=== PATIENT | female | born 1975 | race Caucasian/White ===

== ENCOUNTER 2016-12-23 07:15 | Emergency (ER) | payer MEDICAID ==
[~2016-12-23] VITALS: Ht 157.5 cm; Wt 64.5 kg
[~2016-12-23 07:15] MED LIST: CIPRO 500MG TA500 MG PO; MULTI VITAMINS1 TAB PO; OMNICEF 300MG300 MG PO
[2016-12-23] MEDS ORDERED: MULTI VITAMINS1 TAB PO (07:22)
[2016-12-23 07:56] LABS: BASO # 0.1 (0.0-0.2); BASO % 1.5 % (0.0-2.0); EOS # 0.1 (0.0-0.7); EOS % 1.1 % (0-4.0); GRAN # 3.4 (1.4-6.5); GRAN % 63.6 % (42.2-75.2); LYMPH # 1.4 (1.2-3.4); LYMPH % 26.5 % (20.0-51.0); MEAN CELL VOLUME 83 fl (80.0-100.0); MEAN CORPUSCULAR HGB CONC 31 g/dl (33.0-37.0); MEAN PLATELET VOLUME 9.4 fl (7.4-10.4); MONO # 0.4 (0.1-0.6); MONO % 6.9 % (1.7-9.3); PLATELET COUNT 284 K/mm3 (130-400); RED BLOOD COUNT 3.91 M/mm3 (4.10-5.30); REDCELL DISTRIBUTION WIDTH-CV 13.2 % (11.5-14.5); WHITE BLOOD COUNT 5.3 K/mm3 (4.8-10.8)
[2016-12-23 08:22] LABS: HEMATOCRIT 32.4 % (37.0-47.0); MEAN CORPUSCULAR HEMOGLOBIN 26 pg (27.0-31.0)
[2016-12-23 08:25] LABS: AMPHETAMINE URINE NEGATIVE; BARBITURATES URINE NEGATIVE; BENZODIAZEPINES URINE NEGATIVE; BUPRENORPHINE URINE NEGATIVE; METHADONE URINE NEGATIVE; OPIATES URINE NEGATIVE; OXYCODONE URINE NEGATIVE; PHENCYCLIDINE URINE NEGATIVE; PROPOXYPHENE URINE NEGATIVE; THC CANNABINOIDS URINE NEGATIVE
[2016-12-23 08:34] LABS: ADJUSTED CALCIUM 8.6 mg/dL (8.4-10.2); ALANINE AMINOTRANSFERASE 22 U/L (9-52); ALBUMIN 4.4 gm/dL (3.5-5.0); ALKALINE PHOSPHATASE 62 U/L (50-136); ANION GAP 8 mmol/L (7-16); BILIRUBIN,TOTAL 0.7 mg/dL (0.0-1.0); BLOOD UREA NITROGEN 13 mg/dL (7-17); CALCIUM 8.9 mg/dL (8.4-10.2); CARBON DIOXIDE 27 mmol/L (22-30); CHLORIDE 103 mmol/L (98-107); GLUCOSE 100 mg/dL (74-106); POTASSIUM 3.8 mmol/L (3.4-5.0); SODIUM 138 mmol/L (137-145); TOTAL PROTEIN 7.7 gm/dL (6.4-8.2)
[2016-12-23 08:35] LABS: ACETAMINOPHEN < 10 ug/mL (10-30); SALICYLATE < 1.0 mg/dL
[2016-12-23 11:12] VITALS: BP 132/67; TEMP 98.4
[2016-12-23 11:44] VITALS: PULSE 92
== END 2016-12-23 11:50 ==
LOC: COL.ER 07:15
PROVIDERS: Emergency Medicine
DX: F32.9 Major depressive disorder, single episode, unspecified (principal); R45.851 Suicidal ideations; R44.0 Auditory hallucinations

== ENCOUNTER 2017-01-17 11:02 | Emergency (ER) | payer MEDICAID ==
[~2017-01-17] VITALS: Ht 157.5 cm; Wt 72.3 kg
[2017-01-17 11:19] VITALS: TEMP 97.9
[2017-01-17 12:02] LABS: BASO # 0.1 (0.0-0.2); BASO % 1.1 % (0.0-2.0); EOS % 0.9 % (0-4.0); GRAN # 2.6 (1.4-6.5); GRAN % 57.1 % (42.2-75.2); LYMPH # 1.5 (1.2-3.4); LYMPH % 33.8 % (20.0-51.0); MEAN CELL VOLUME 79 fl (80.0-100.0); MEAN CORPUSCULAR HGB CONC 30 g/dl (33.0-37.0); MEAN PLATELET VOLUME 9.8 fl (7.4-10.4); MONO # 0.3 (0.1-0.6); MONO % 6.9 % (1.7-9.3); PLATELET COUNT 235 K/mm3 (130-400); RED BLOOD COUNT 4.32 M/mm3 (4.10-5.30); REDCELL DISTRIBUTION WIDTH-CV 13.5 % (11.5-14.5); WHITE BLOOD COUNT 4.5 K/mm3 (4.8-10.8)
[2017-01-17 12:04] LABS: HEMATOCRIT 34.1 % (37.0-47.0); HEMOGLOBIN 10.2 g/dl (12.5-16.0); MEAN CORPUSCULAR HEMOGLOBIN 24 pg (27.0-31.0)
[2017-01-17 12:13] LABS: ADJUSTED CALCIUM 8.5 mg/dL (8.4-10.2); ALANINE AMINOTRANSFERASE 26 U/L (9-52); ALBUMIN 4.7 gm/dL (3.5-5.0); ALKALINE PHOSPHATASE 72 U/L (50-136); ANION GAP 12 mmol/L (7-16); BILIRUBIN,TOTAL 0.6 mg/dL (0.0-1.0); BLOOD UREA NITROGEN 14 mg/dL (7-17); CALCIUM 9.1 mg/dL (8.4-10.2); CARBON DIOXIDE 25 mmol/L (22-30); CHLORIDE 102 mmol/L (98-107); CREATININE, serum 0.68 mg/dL (0.52-1.25); GLUCOSE 95 mg/dL (74-106); SODIUM 138 mmol/L (137-145); TOTAL PROTEIN 8.2 gm/dL (6.4-8.2)
[2017-01-17 12:15] LABS: ACETAMINOPHEN < 10 ug/mL (10-30); SALICYLATE < 1.0 mg/dL
[2017-01-17 12:17] LABS: AMPHETAMINE URINE NEGATIVE; BARBITURATES URINE NEGATIVE; BENZODIAZEPINES URINE NEGATIVE; BUPRENORPHINE URINE NEGATIVE; METHADONE URINE NEGATIVE; OPIATES URINE NEGATIVE; OXYCODONE URINE NEGATIVE; PHENCYCLIDINE URINE NEGATIVE; PROPOXYPHENE URINE NEGATIVE; THC CANNABINOIDS URINE NEGATIVE
[2017-01-17] MEDS ORDERED: ZOLOFT 50MG50 MG PO (16:30)
[2017-01-17] MEDS ORDERED: RISPERDAL 0.5M0.5 MG PO (16:30)
[2017-01-17] MEDS ORDERED: RISPERDAL 1M1 MG/TAB PO (16:30)
[2017-01-17] MEDS ORDERED: DESYREL 50MG50 MG PO (16:30)
[2017-01-17 18:12] VITALS: BP 120/72; PULSE 72
== END 2017-01-17 18:14 ==
LOC: COL.ER 11:02
PROVIDERS: Emergency Medicine
DX: R45.851 Suicidal ideations (principal); F32.9 Major depressive disorder, single episode, unspecified; R44.0 Auditory hallucinations

== ENCOUNTER 2017-04-23 01:47 | Emergency (ER) | payer SELFPAY ==
[~2017-04-23] VITALS: Ht 160 cm; Wt 70.5 kg
[~2017-04-23 01:47] MED LIST changes: +DESYREL 50MG50 MG PO; +RISPERDAL 0.5M0.5 MG PO; +RISPERDAL 1M1 MG/TAB PO; +ZOLOFT 50MG50 MG PO
[2017-04-23 01:49] VITALS: TEMP 96.9
[2017-04-23] MEDS ORDERED: LATUDA80 MG PO (01:52)
[2017-04-23] MEDS ORDERED: DESYREL 100MG100 MG PO (01:53)
[2017-04-23] MEDS ORDERED: CYMBALTA 60MG60 MG PO (01:53)
[2017-04-23 02:34] LABS: BASO # 0.1 (0.0-0.2); BASO % 0.8 % (0.0-2.0); EOS # 0.1 (0.0-0.7); EOS % 0.9 % (0-4.0); GRAN # 6.9 (1.4-6.5); HEMATOCRIT 32.3 % (37.0-47.0); HEMOGLOBIN 9.8 g/dl (12.5-16.0); LYMPH # 2.1 (1.2-3.4); LYMPH % 20.7 % (20.0-51.0); MEAN CELL VOLUME 77 fl (80.0-100.0); MEAN CORPUSCULAR HEMOGLOBIN 23 pg (27.0-31.0); MEAN CORPUSCULAR HGB CONC 30 g/dl (33.0-37.0); MONO # 0.7 (0.1-0.6); MONO % 7.2 % (1.7-9.3); PLATELET COUNT 247 K/mm3 (130-400); RED BLOOD COUNT 4.22 M/mm3 (4.10-5.30); REDCELL DISTRIBUTION WIDTH-CV 16.5 % (11.5-14.5); WHITE BLOOD COUNT 9.9 K/mm3 (4.8-10.8)
[2017-04-23 02:40] LABS: PH 6 (5-8); URINE APPEARANCE Cloudy; URINE BACTERIA Rare /hpf; URINE BILIRUBIN Negative (NEGATIVE); URINE BLOOD 3+ (NEGATIVE); URINE COLOR Yellow; URINE GLUCOSE Negative (NEGATIVE); URINE KETONE Negative (NEGATIVE); URINE RBC >50 /hpf; URINE UROBILINOGEN Negative (NEGATIVE)
[2017-04-23 02:41] LABS: URINE WBC >50 /hpf
[2017-04-23 02:46] LABS: ADJUSTED CALCIUM 8.8 mg/dL (8.4-10.2); ALANINE AMINOTRANSFERASE 21 U/L (9-52); ALBUMIN 4.4 gm/dL (3.5-5.0); ALKALINE PHOSPHATASE 67 U/L (50-136); ANION GAP 11 mmol/L (7-16); BILIRUBIN,TOTAL 0.4 mg/dL (0.0-1.0); BLOOD UREA NITROGEN 17 mg/dL (7-17); C-REACTIVE PROTEIN < 0.5 mg/dL (0.0-0.9); CALCIUM 9.1 mg/dL (8.4-10.2); CARBON DIOXIDE 23 mmol/L (22-30); CHLORIDE 105 mmol/L (98-107); CREATININE, serum 0.78 mg/dL (0.52-1.25); GLUCOSE 98 mg/dL (74-106); LIPASE 342 U/L (23-300); POTASSIUM 3.7 mmol/L (3.4-5.0); SODIUM 139 mmol/L (137-145); TOTAL PROTEIN 7.6 gm/dL (6.4-8.2)
[2017-04-23] MEDS ORDERED: PYRIDIUM200 M1 PO (03:41)
[2017-04-23] MEDS ORDERED: PERCOCET 325 MG1 TA2 PO (03:41)
[2017-04-23] MEDS ORDERED: OMNICEF 300MG300 MG PO (03:41)
[2017-04-23] MEDS ORDERED: ZOFRAN 4MG T4 MG/TAB PO (03:41)
[2017-04-23 04:07] VITALS: BP 119/80; PULSE 73
== END 2017-04-23 04:11 | disposition home or self-care (01) ==
LOC: COL.ER 01:47
PROVIDERS: Emergency Medicine
DX: N39.0 Urinary tract infection, site not specified (principal); N12 Tubulo-interstitial nephritis, not specified as acute or chronic; B96.89 Other specified bacterial agents as the cause of diseases classified elsewhere; F32.9 Major depressive disorder, single episode, unspecified; Z90.49 Acquired absence of other specified parts of digestive tract; Z98.51 Tubal ligation status
CPT/HCPCS: J0696; J1885; J2405; J7030

== ENCOUNTER 2017-12-06 15:30 | Emergency (ER) | payer MEDICAID ==
[~2017-12-06] VITALS: Ht 157.5 cm; Wt 61.4 kg
[~2017-12-06 15:30] MED LIST changes: +CYMBALTA 60MG60 MG PO; +DESYREL 100MG100 MG PO; +LATUDA80 MG PO; +PERCOCET 325 MG1 TA2 PO; +PYRIDIUM200 M1 PO; +ZOFRAN 4MG T4 MG/TAB PO
[2017-12-06 15:35] VITALS: TEMP 98.8
[2017-12-06 16:30] LABS: BASO # 0.1 (0.0-0.2); EOS # 0.1 (0.0-0.7); EOS % 1.2 % (0-4.0); GRAN % 68.5 % (42.2-75.2); HEMATOCRIT 32.9 % (37.0-47.0); LYMPH # 1.5 (1.2-3.4); MEAN CELL VOLUME 77 fl (80.0-100.0); MEAN CORPUSCULAR HEMOGLOBIN 23 pg (27.0-31.0); MEAN CORPUSCULAR HGB CONC 30 g/dl (33.0-37.0); MEAN PLATELET VOLUME 9.5 fl (7.4-10.4); MONO # 0.6 (0.1-0.6); MONO % 8.2 % (1.7-9.3); PLATELET COUNT 272 K/mm3 (130-400); REDCELL DISTRIBUTION WIDTH-CV 15.1 % (11.5-14.5)
[2017-12-06 16:40] LABS: COLLECTION METHOD CLEAN CATCH
[2017-12-06 16:46] LABS: MUCOUS Present /lpf; PH 5 (5-8); URINE APPEARANCE Cloudy; URINE BACTERIA Rare /hpf; URINE BILIRUBIN Negative (NEGATIVE); URINE BLOOD Negative (NEGATIVE); URINE COLOR Amber; URINE GLUCOSE Negative (NEGATIVE); URINE KETONE 1+ (NEGATIVE); URINE LEUKOCYTE ESTERASE 3+ (NEGATIVE); URINE NITRATE Negative (NEGATIVE); URINE PROTEIN(semi-quant) 2+ (NEGATIVE); URINE UROBILINOGEN >=4.0 mg/dL (NEGATIVE)
[2017-12-06 16:47] LABS: ACETAMINOPHEN < 10 ug/mL (10-30); ALANINE AMINOTRANSFERASE 24 U/L (9-52); ALBUMIN 4.5 gm/dL (3.5-5.0); ALCOHOL(ethanol),MEDICAL < 10 mg/dL; ALKALINE PHOSPHATASE 62 U/L (50-136); ANION GAP 13 mmol/L (7-16); AST,SGOT 21 U/L (15-37); BILIRUBIN,TOTAL 0.3 mg/dL (0.0-1.0); BLOOD UREA NITROGEN 22 mg/dL (7-17); CALCIUM 9.7 mg/dL (8.4-10.2); CARBON DIOXIDE 27 mmol/L (22-30); CHLORIDE 101 mmol/L (98-107); GLUCOSE 116 mg/dL (74-106); POTASSIUM 3.5 mmol/L (3.4-5.0); SALICYLATE < 1.0 mg/dL; SODIUM 141 mmol/L (137-145); TOTAL PROTEIN 8.2 gm/dL (6.4-8.2)
[2017-12-06] MEDS ORDERED: WELLBUTRIN 75MG75 MG (16:50)
[2017-12-06] MEDS ORDERED: ELAVIL150 MG PO (16:51)
[2017-12-06] MEDS ORDERED: XANAX 0.5MG0.5 MG (16:51)
[2017-12-06] MEDS ORDERED: MACROBID 1100 MG/CAP PO (17:05)
[2017-12-06 17:22] LABS: TRICYCLIC ANTIDEPRESS URINE NEGATIVE
[2017-12-06] MEDS ORDERED: AMBIEN 10MG10 MG PO (18:23)
[2017-12-06 21:21] VITALS: BP 129/84; PULSE 105
[2017-12-08] MEDS ORDERED: CEFTIN500 MG PO (11:31)
== END 2017-12-06 21:21 ==
LOC: COL.ER 15:30
PROVIDERS: Nurse Practitioner
DX: F32.9 Major depressive disorder, single episode, unspecified (principal); N39.0 Urinary tract infection, site not specified; F43.10 Post-traumatic stress disorder, unspecified; Z98.51 Tubal ligation status; Z90.89 Acquired absence of other organs

== ENCOUNTER 2017-12-26 18:48 | Emergency (ER) | payer MEDICAID ==
[~2017-12-26] VITALS: Ht 165.1 cm; Wt 68.2 kg
[~2017-12-26 18:48] MED LIST changes: +AMBIEN 10MG10 MG PO; +CEFTIN500 MG PO; +ELAVIL150 MG PO; +MACROBID 1100 MG/CAP PO; +WELLBUTRIN 75MG75 MG; +XANAX 0.5MG0.5 MG
[2017-12-26 18:56] VITALS: TEMP 98.3
[2017-12-26 19:10] LABS: BASO # 0.1 (0.0-0.2); BASO % 1.1 % (0.0-2.0); EOS # 0.1 (0.0-0.7); EOS % 1.5 % (0-4.0); GRAN # 3.4 (1.4-6.5); LYMPH # 1.5 (1.2-3.4); LYMPH % 26.9 % (20.0-51.0); MEAN CELL VOLUME 77 fl (80.0-100.0); MEAN CORPUSCULAR HGB CONC 30 g/dl (33.0-37.0); MONO # 0.4 (0.1-0.6); MONO % 8.1 % (1.7-9.3); PLATELET COUNT 313 K/mm3 (130-400); RED BLOOD COUNT 3.74 M/mm3 (4.10-5.30); REDCELL DISTRIBUTION WIDTH-CV 15.1 % (11.5-14.5)
[2017-12-26 19:11] LABS: HEMATOCRIT 28.7 % (37.0-47.0); HEMOGLOBIN 8.5 g/dl (12.5-16.0); MEAN CORPUSCULAR HEMOGLOBIN 23 pg (27.0-31.0)
[2017-12-26 19:28] LABS: ACETAMINOPHEN < 10 ug/mL (10-30); ALANINE AMINOTRANSFERASE 26 U/L (9-52); ALBUMIN 4.1 gm/dL (3.5-5.0); ALCOHOL(ethanol),MEDICAL < 10 mg/dL; ALKALINE PHOSPHATASE 74 U/L (50-136); ANION GAP 13 mmol/L (7-16); AST,SGOT 25 U/L (15-37); BILIRUBIN,TOTAL 0.3 mg/dL (0.0-1.0); BLOOD UREA NITROGEN 22 mg/dL (7-17); CALCIUM 8.9 mg/dL (8.4-10.2); CARBON DIOXIDE 27 mmol/L (22-30); CHLORIDE 101 mmol/L (98-107); CREATININE, serum 0.88 mg/dL (0.52-1.25); GLUCOSE 97 mg/dL (74-106); POTASSIUM 3.8 mmol/L (3.4-5.0); SALICYLATE < 1.0 mg/dL; SODIUM 141 mmol/L (137-145); TOTAL PROTEIN 7.7 gm/dL (6.4-8.2)
[2017-12-27 01:09] LABS: COLLECTION METHOD CLEAN CATCH
[2017-12-27 01:14] LABS: MUCOUS Present /lpf; PH 6 (5-8); SQUAMOUS EPITHELIAL 0-2 /hpf; URINE APPEARANCE Clear; URINE BACTERIA None Seen /hpf; URINE BILIRUBIN Negative (NEGATIVE); URINE BLOOD Negative (NEGATIVE); URINE COLOR Yellow; URINE GLUCOSE Negative (NEGATIVE); URINE KETONE Negative (NEGATIVE); URINE LEUKOCYTE ESTERASE Negative (NEGATIVE); URINE NITRATE Negative (NEGATIVE); URINE PROTEIN(semi-quant) Negative (NEGATIVE); URINE RBC 0-2 /hpf; URINE UROBILINOGEN Negative (NEGATIVE)
[2017-12-27 01:24] LABS: TRICYCLIC ANTIDEPRESS URINE NEGATIVE
[2017-12-27 14:10] VITALS: BP 114/65
[2017-12-27 15:49] VITALS: PULSE 71
== END 2017-12-27 15:55 ==
LOC: COL.ER 18:48
PROVIDERS: Emergency Medicine
DX: T42.6X2A Poisoning by other antiepileptic and sedative-hypnotic drugs, intentional self-harm, initial encounter (principal); R45.851 Suicidal ideations
CPT/HCPCS: J2405; J7030

== ENCOUNTER 2018-12-14 23:28 | Emergency (ER) | payer MEDICAID ==
[~2018-12-14] VITALS: Ht 157.5 cm; Wt 52.3 kg
[2018-12-14 23:30] VITALS: TEMP 97.2
[2018-12-15] MEDS ORDERED: MONODOX100 PO (03:43)
[2018-12-15] MEDS ORDERED: ARISTADA1064 MG/3. (03:43)
[2018-12-15] MEDS ORDERED: WELLBUTRIN XL150 MG PO (03:43)
[2018-12-15] MEDS ORDERED: INDERAL 20MG20 MG PO (03:43)
[2018-12-15] MEDS ORDERED: PERCOCET 325 MG1 TA2 PO (05:21)
[2018-12-15 05:50] VITALS: BP 101/60; PULSE 60
== END 2018-12-15 05:52 | disposition home or self-care (01) ==
LOC: COL.ER 23:28
DX: L03.011 Cellulitis of right finger (principal); F41.9 Anxiety disorder, unspecified; Z23 Encounter for immunization
CPT/HCPCS: J2405

== ENCOUNTER 2018-12-27 15:13 | Inpatient (IN) | payer MEDICAID ==
[~2018-12-27] VITALS: Ht 157.5 cm; Wt 52.2 kg
[2018-12-27] VITALS (7 sets, daily range): BP systolic 107–123; BP diastolic 53–68; PULSE 66–86; TEMP 97.3–98.6
[~2018-12-27 15:13] MED LIST changes: +ARISTADA1064 MG/3. IM; +INDERAL 20MG20 MG PO; +MONODOX100 PO; +WELLBUTRIN XL150 MG PO
[2018-12-27 15:38] LABS: BASO # 0.1 (0.0-0.2); BASO % 1.3 % (0.0-2.0); EOS % 0.8 % (0-4.0); GRAN # 3.1 (1.4-6.5); GRAN % 64.6 % (42.2-75.2); LYMPH # 1.2 (1.2-3.4); LYMPH % 24.3 % (20.0-51.0); MEAN CELL VOLUME 70 fl (80.0-100.0); MEAN CORPUSCULAR HGB CONC 27 g/dl (33.0-37.0); MEAN PLATELET VOLUME 9.4 fl (7.4-10.4); MONO # 0.4 (0.1-0.6); MONO % 8.8 % (1.7-9.3); PLATELET COUNT 235 K/mm3 (130-400); RED BLOOD COUNT 3.38 M/mm3 (4.10-5.30); REDCELL DISTRIBUTION WIDTH-CV 18.6 % (11.5-14.5)
[2018-12-27 15:47] LABS: ALANINE AMINOTRANSFERASE 28 U/L (9-52); ALKALINE PHOSPHATASE 53 U/L (50-136); ANION GAP 9 mmol/L (7-16); AST,SGOT 21 U/L (15-37); BILIRUBIN,TOTAL 0.4 mg/dL (0.0-1.0); BLOOD UREA NITROGEN 16 mg/dL (7-17); CALCIUM 8.8 mg/dL (8.4-10.2); CARBON DIOXIDE 26 mmol/L (22-30); CHLORIDE 107 mmol/L (98-107); CREATININE, serum 0.81 (0.52-1.25); GLUCOSE 91 mg/dL (74-106); POTASSIUM 3.8 mmol/L (3.4-5.0); SODIUM 142 mmol/L (137-145); TOTAL PROTEIN 6.8 gm/dL (6.4-8.2)
[2018-12-27 15:49] LABS: INR 1.2 (0.8-3.0); PROTHROMBIN TIME 13.2 SECONDS (9.7-12.8)
[2018-12-27 15:52] LABS: HEMATOCRIT 23.8 % (37.0-47.0); HEMOGLOBIN 6.3 g/dl (12.5-16.0); MEAN CORPUSCULAR HEMOGLOBIN 19 pg (27.0-31.0)
[2018-12-27 15:58] LABS: TROPONIN-I < 0.012 ng/mL (0.000-0.035)
[2018-12-27 16:13] LABS: D-DIMER < 200.00 ng/mLDDu (200-230)
[2018-12-27 16:47] LABS: BASOPHIL 1 % (0-2); EOSINOPHIL 1 % (0-4); LYMPHOCYTE 22 % (20.0-51.0); NEUTROPHILS 66 % (42.0-75.2); PLATELET ESTIMATE NORMAL (NORMAL)
[2018-12-27 16:48] LABS: ANISOCYTOSIS 1+; HYPOCHROMIA 3+; MICROCYTOSIS 1+; POLYCHROMASIA 1+
[2018-12-27 17:02] LABS: HEMATOCRIT 22.1 % (37.0-47.0); HEMOGLOBIN 5.9 g/dl (12.5-16.0)
--- NOTE | 2018-12-27 20:43 | NUR ---
Patient arrived to medical floor at 1949. Blood transfusiong initiated at 2031. Assessment complete. Lungs clear. Heart sounds normal. Bowels active x4. Pulses strong throughout. No edema noted. Denies pain. Denies needs. Remained at bedside for first 15 mintues of transfusion.
[2018-12-27] MEDS ORDERED: WELLBUTRIN XL300 M1 PO (20:47)
--- NOTE | 2018-12-27 21:01 | NUR ---
Patient resting in bed. No reports of transfusing reaction symptoms. Denies needs at this time. Will monitor
[2018-12-28] VITALS (12 sets, daily range): BP systolic 97–118; BP diastolic 55–74; PULSE 57–88; TEMP 97.3–98.8
[2018-12-28 00:34] LABS: HEMATOCRIT 25.4 % (37.0-47.0); HEMOGLOBIN 7.1 g/dl (12.5-16.0)
--- NOTE | 2018-12-28 00:38 | NUR ---
Informed Dr. Sykes patient hgb 7.1 after recent transfusion. Per Dr. Sykes transfuse x1 unit of pRBC. Also received order for PRN tums for patient.
--- NOTE | 2018-12-28 01:25 | NUR ---
Second unit of red blood cells started at this time. Patient also provided with PRN tums. Remaining at bedside for first 15 mins.
--- NOTE | 2018-12-28 04:08 | NUR ---
Blood transfusion ended. Patient reports chest pain. States "same chest pain I am came into the ER with." Spoke with Dr. Sykes, EKG, x1 dose of dilaudid, troponin ordered. Provided to patient. Will closely monitor.
[2018-12-28 06:03] LABS: MEAN CELL VOLUME 74 fl (80.0-100.0); MEAN CORPUSCULAR HGB CONC 28 g/dl (33.0-37.0); MEAN PLATELET VOLUME 9.4 fl (7.4-10.4); PLATELET COUNT 222 K/mm3 (130-400); RED BLOOD COUNT 4.06 M/mm3 (4.10-5.30); REDCELL DISTRIBUTION WIDTH-CV 19.4 % (11.5-14.5); RETIC # 0.04 M/mm3 (0.02-0.16); RETIC % 1.1 % (0.5-3.52)
[2018-12-28 06:05] LABS: HEMOGLOBIN 8.4 g/dl (12.5-16.0); MEAN CORPUSCULAR HEMOGLOBIN 21 pg (27.0-31.0)
[2018-12-28 06:07] LABS: INR 1.1 (0.8-3.0)
--- NOTE | 2018-12-28 06:14 | NUR ---
Patient receieved x2 units of red blood cells throughout night. Tolerated well. Reported one episode of of chest pain. Dilaudid resolved. Dr. Sykes aware. Resting in bed this AM. Call light in reach.
[2018-12-28 06:17] LABS: ALBUMIN 3.6 gm/dL (3.5-5.0); BILIRUBIN,TOTAL 1.1 mg/dL (0.0-1.0); CALCIUM 8.9 mg/dL (8.4-10.2); CREATININE, serum 0.71 (0.52-1.25); MAGNESIUM 1.9 mg/dL (1.6-2.3); POTASSIUM 4.4 mmol/L (3.4-5.0); TOTAL PROTEIN 6.1 gm/dL (6.4-8.2)
[2018-12-28 06:36] LABS: ERYTHROCYTE SEDIMENTATION RATE 1 mm/hr (0-20)
--- NOTE | 2018-12-28 07:01 | NUR ---
Report given to NYA Sen
--- NOTE | 2018-12-28 10:00 | NUR ---
Patient alert and oriented, answers qeustions appropraitely. See assessment. C/o mid sternal chest pain, non radiating, described as tenderness. Warm pack applied. No other c/o at this time.
--- NOTE | 2018-12-28 11:58 | NUR ---
Dr Wise notified of consult.
--- NOTE | 2018-12-28 12:10 | NUR ---
Patient lives at home in [place], [place] and has six children and plans to discharge back home upon her discharge and recovery. Patient is independent with daily living activities and is employed at [employer]. Patient's sister (Maria De Jesus Wilson) is supportive of patient's needs and care as needed. Patient has a history of Bipolar, Depression, and PTSD, her primary care physician and care is provided at [facility] ([place]), her pharmacy is [facility], and she does not have healthcare advance directives completed or on file at this time. Patient does not have any anticipated durable medical equipment needs at this time and social worker psychiatric will follow as needed.
--- NOTE | 2018-12-28 19:55 | NUR ---
PT RESTING IN BED A+OX4. REPORTS STERNUM PAIN, PRN MEDS AND HEAT PACK. PT WORKING ON DRINKING BOWEL PREP. TELE ON. NO NEEDS, CALL LIGHT IN REACH. SHIFT ASSESSMENT COMPLETE.
--- NOTE | 2018-12-29 05:12 | NUR ---
pt slept off and on throughout night. at beginning of night pt reported sternal pain- prn meds relieved pain. later pt reported abd pain- heat pack given. pt finished bowel prep. reported mult BM. pt npo. pt reports no weakness or light headedness. right forarm flushes, no redness, no swelling. no needs at tthis time, call light in reach
[2018-12-29 05:14] VITALS: BP 109/59; PULSE 65; TEMP 98
[2018-12-29 06:54] LABS: BASO # 0.1 (0.0-0.2); BASO % 1.2 % (0.0-2.0); EOS # 0.1 (0.0-0.7); EOS % 1.4 % (0-4.0); GRAN # 4.7 (1.4-6.5); GRAN % 67.6 % (42.2-75.2); LYMPH # 1.5 (1.2-3.4); LYMPH % 21.7 % (20.0-51.0); MEAN CELL VOLUME 75 fl (80.0-100.0); MEAN CORPUSCULAR HGB CONC 28 g/dl (33.0-37.0); MEAN PLATELET VOLUME 10.2 fl (7.4-10.4); MONO # 0.5 (0.1-0.6); MONO % 7.8 % (1.7-9.3); PLATELET COUNT 209 K/mm3 (130-400); RED BLOOD COUNT 4.03 M/mm3 (4.10-5.30); REDCELL DISTRIBUTION WIDTH-CV 19.8 % (11.5-14.5)
[2018-12-29 07:01] LABS: HEMATOCRIT 30.1 % (37.0-47.0); HEMOGLOBIN 8.3 g/dl (12.5-16.0); MEAN CORPUSCULAR HEMOGLOBIN 21 pg (27.0-31.0)
[2018-12-29 07:06] LABS: CALCIUM 8.7 mg/dL (8.4-10.2); CREATININE, serum 0.6 (0.52-1.25); POTASSIUM 4.2 mmol/L (3.4-5.0)
--- NOTE | 2018-12-29 07:13 | NUR ---
report given to NYA Chamberlain. pt reports no needs
[2018-12-29 07:43] VITALS: BP 104/64; PULSE 73; TEMP 98.4
--- NOTE | 2018-12-29 09:30 | NUR ---
Consent for EGD/Colonoscopy on the chart. No pain or needs reported. Initial assessment completed. NPO until procedure. No needs at this time.
[2018-12-29 12:57] VITALS: BP 109/60; PULSE 53; TEMP 97.6
[2018-12-29] MEDS ORDERED: TYLENOL 325MG325 MG PO (15:43)
[2018-12-29] MEDS ORDERED: Ferrous Sulfate PO (15:44)
--- NOTE | 2018-12-29 18:59 | NUR ---
pt had N/V, clear thick emesis. pt reports no more nausea- ate 100% of dinner. reports no pain. no needs at this time
--- NOTE | 2018-12-29 19:06 | NUR ---
No change throughout the shift. Resting now, the call light is in place. Report given to NYA Hoover to resume care. Plan for possible DC tomorrow.
[2018-12-29 19:47] VITALS: BP 104/53; PULSE 58; TEMP 98.2
--- NOTE | 2018-12-29 19:55 | NUR ---
pt resting in bed A+Ox4. reports no pain. no nausea at this time. pt ate 100% of dinner. no dizziness, no light headedness noted. no needs at this time
[2018-12-30 00:07] VITALS: BP 98/50; PULSE 55; TEMP 98.7
[2018-12-30 03:33] VITALS: BP 94/56; PULSE 61; TEMP 98.4
--- NOTE | 2018-12-30 05:40 | NUR ---
pt had an uneventful night reports no pain. no dizziness, no light headedness. IV INT- flushes well no redness. no swelling. no needs a tthis time, call light in reach
[2018-12-30 06:52] LABS: BASO # 0.1 (0.0-0.2); BASO % 1.1 % (0.0-2.0); EOS # 0.1 (0.0-0.7); GRAN # 4.1 (1.4-6.5); GRAN % 65.5 % (42.2-75.2); LYMPH # 1.5 (1.2-3.4); LYMPH % 23.9 % (20.0-51.0); MEAN CELL VOLUME 74 fl (80.0-100.0); MEAN CORPUSCULAR HGB CONC 28 g/dl (33.0-37.0); MEAN PLATELET VOLUME 10.2 fl (7.4-10.4); MONO # 0.5 (0.1-0.6); MONO % 8.2 % (1.7-9.3); PLATELET COUNT 174 K/mm3 (130-400); RED BLOOD COUNT 4.07 M/mm3 (4.10-5.30); REDCELL DISTRIBUTION WIDTH-CV 20.3 % (11.5-14.5)
[2018-12-30 06:53] LABS: HEMATOCRIT 30.2 % (37.0-47.0); HEMOGLOBIN 8.3 g/dl (12.5-16.0); MEAN CORPUSCULAR HEMOGLOBIN 20 pg (27.0-31.0)
--- NOTE | 2018-12-30 06:53 | NUR ---
report given to NYA Henley. pt reports no needs
--- NOTE | 2018-12-30 07:00 | NUR ---
Report received from NYA Hoover. PT in bed resting, denies needs, will continue to monitor.
[2018-12-30 07:10] LABS: CALCIUM 8.6 mg/dL (8.4-10.2); CREATININE, serum 0.72 (0.52-1.25)
--- NOTE | 2018-12-30 07:49 | NUR ---
Assessment charted. Discussed am meds purpose and helpful hints to take protonix on an empty stomach, and iron with food and some vitamin c rich juice. Pt agreeable. Denies pain except chronic discomfort in chest but. Ordered breakfast, feeling well, denies nausea or vomiting. INT to RW. Will continue to monitor.
[2018-12-30 07:58] VITALS: BP 119/69; PULSE 72; TEMP 97.4
--- NOTE | 2018-12-30 11:40 | NUR ---
Pt discharged at this time. INT d/c'd, tip intact. Reviewed pt packet, answered all questions, discussed f/u appointments and new medications. Pt left with all belongings, escorted out by myself. to drive home, criteria met.
== END 2018-12-30 11:40 | disposition home or self-care (01) | DRG 812 ==
LOC: COL.ER 15:13 → MEDICAL 17:11
PROVIDERS: Emergency Medicine; Hospitalist; Internal Medicine Gastroenterology; Nurse Practitioner Family; ADMIT Internal Medicine
PROC: 0DJ08ZZ Inspection of Upper Intestinal Tract, Via Natural or Artificial Opening Endoscopic (ICD-10-PCS; principal; 2018-12-29 14:45)
PROC: 0DBP8ZZ Excision of Rectum, Via Natural or Artificial Opening Endoscopic (ICD-10-PCS; 2018-12-29 14:45)
DX: D50.9 Iron deficiency anemia, unspecified (principal); E44.0 Moderate protein-calorie malnutrition; K62.1 Rectal polyp; F41.9 Anxiety disorder, unspecified; F32.9 Major depressive disorder, single episode, unspecified; R07.89 Other chest pain; R63.4 Abnormal weight loss; Z68.21 Body mass index [BMI] 21.0-21.9, adult; Z88.5 Allergy status to narcotic agent; Z88.6 Allergy status to analgesic agent
CPT/HCPCS: 99222-AI; 99232-AI; 99239; C9113; J1170; J2250; J3010; J7030; P9016

== ENCOUNTER 2019-01-11 16:25 | Emergency (ER) | payer MEDICAID ==
[~2019-01-11] VITALS: Ht 157.5 cm; Wt 51.4 kg
[~2019-01-11 16:25] MED LIST changes: +Ferrous Sulfate PO; +TYLENOL 325MG325 MG PO; +WELLBUTRIN XL300 M1 PO
[2019-01-11 16:35] VITALS: TEMP 97.1
[2019-01-11 17:52] LABS: BASO # 0.1 (0.0-0.2); BASO % 0.9 % (0.0-2.0); EOS % 0.5 % (0-4.0); GRAN # 5.5 (1.4-6.5); GRAN % 73.1 % (42.2-75.2); HEMOGLOBIN 10.4 g/dl (12.5-16.0); LYMPH # 1.5 (1.2-3.4); LYMPH % 19.4 % (20.0-51.0); MEAN CELL VOLUME 80 fl (80.0-100.0); MEAN CORPUSCULAR HEMOGLOBIN 23 pg (27.0-31.0); MEAN CORPUSCULAR HGB CONC 29 g/dl (33.0-37.0); MEAN PLATELET VOLUME 9.9 fl (7.4-10.4); MONO # 0.4 (0.1-0.6); MONO % 5.8 % (1.7-9.3); PLATELET COUNT 314 K/mm3 (130-400); RED BLOOD COUNT 4.46 M/mm3 (4.10-5.30); REDCELL DISTRIBUTION WIDTH-CV 27.1 % (11.5-14.5)
[2019-01-11 17:56] LABS: HEMATOCRIT 35.5 % (37.0-47.0)
[2019-01-11 18:03] LABS: ALBUMIN 4.1 gm/dL (3.5-5.0); BILIRUBIN,TOTAL 0.4 mg/dL (0.0-1.0); CALCIUM 9.5 mg/dL (8.4-10.2); CREATININE, serum 0.65 (0.52-1.25); POTASSIUM 3.6 mmol/L (3.4-5.0); TOTAL PROTEIN 6.9 gm/dL (6.4-8.2)
[2019-01-11] MEDS ORDERED: SPRINTEC 35 MCG1 TAB PO (19:14)
[2019-01-11] MEDS ORDERED: ZOFRAN 4MG T4 MG/TAB PO (19:14)
[2019-01-11 19:45] VITALS: BP 138/80; PULSE 61
== END 2019-01-11 19:45 | disposition home or self-care (01) ==
LOC: COL.ER 16:25
PROVIDERS: Emergency Medicine
DX: D64.9 Anemia, unspecified (principal); N93.9 Abnormal uterine and vaginal bleeding, unspecified; Z90.49 Acquired absence of other specified parts of digestive tract; F32.9 Major depressive disorder, single episode, unspecified; F41.9 Anxiety disorder, unspecified; Z98.51 Tubal ligation status
CPT/HCPCS: J7030

== ENCOUNTER 2024-04-27 07:44 | Emergency (ER) | payer OTHER, MEDICAID ==
[~2024-04-27] VITALS: Ht 157.5 cm; Wt 80.5 kg
[~2024-04-27 07:44] MED LIST changes: +AMITRIPTYLINE H25 M1 PO; +SPRINTEC 35 MCG1 TAB PO; +ZOFRAN ODT4 MG PO
[2024-04-27 07:48] VITALS: TEMP 97.7
[2024-04-27] MEDS ORDERED: Promethazine 50 MG/ML 1 ML VIAL IM ONE (08:00)
[2024-04-27] MEDS ORDERED: Ketorolac 60 MG/2 ML VIAL IM ONE (08:00)
[2024-04-27] MEDS ORDERED: SUMAtriptan 6 MG/0.5 ML SYRINGE SQ ONE (08:45)
[2024-04-27 09:44] VITALS: BP 138/70; PULSE 74
== END 2024-04-27 09:45 | disposition home or self-care (01) ==
LOC: COL.ER 07:44
DX: R51.9 Headache, unspecified (principal)
CPT/HCPCS: J1885; J2550; J3030

== ENCOUNTER 2024-06-02 06:25 | Emergency (ER) | payer OTHER, MEDICAID ==
[~2024-06-02] VITALS: Ht 157.5 cm; Wt 82.3 kg
[2024-06-02 06:34] VITALS: TEMP 97.8
[2024-06-02 06:53] LABS: BASO % 0.7 % (0.0-2.0); EOS # 0.1 K/mm3 (0.0-0.7); EOS % 1.4 % (0.0-4.0); GRAN # 3.3 K/mm3 (1.4-6.5); GRAN % 56.5 % (42.2-75.2); HEMOGLOBIN 13.2 g/dl (12.5-16.0); LYMPH # 2.1 K/mm3 (1.2-3.4); LYMPH % 35.3 % (20.0-51.0); MEAN CELL VOLUME 91 fl (80.0-100.0); MEAN CORPUSCULAR HEMOGLOBIN 30 pg (27-31); MEAN CORPUSCULAR HGB CONC 33 g/dl (33.0-37.0); MEAN PLATELET VOLUME 9.6 fl (7.4-10.4); MONO # 0.3 K/mm3 (0.1-0.6); MONO % 5.8 % (1.7-9.3); PLATELET COUNT 249 K/mm3 (130-400); REDCELL DISTRIBUTION WIDTH-CV 11.9 % (11.5-14.5)
[2024-06-02 06:57] LABS: INR 1.1 (0.8-3.0)
[2024-06-02 07:11] LABS: PARTIAL THROMBOPLASTIN TIME 37.4 SECONDS (26.0-37.0)
[2024-06-02] MEDS ORDERED: Ketorolac 15 MG/ML VIAL IV ONE (07:15)
[2024-06-02 07:22] LABS: ALANINE AMINOTRANSFERASE 19 U/L (0-55); ALBUMIN 3.8 g/dL (3.5-5.0); ALKALINE PHOSPHATASE 102 U/L (40-150); ANION GAP 8 mmol/L (7-16); AST,SGOT 17 U/L (5-34); BILIRUBIN,TOTAL 0.4 mg/dL (0.2-1.2); BLOOD UREA NITROGEN 17 mg/dL (7-19); CALCIUM 9.7 mg/dL (8.4-10.2); CHLORIDE 108 mEq/L (98-107); CREATININE, serum 0.93 mg/dL (0.57-1.11); GLUCOSE 115 mg/dL (70-99); POTASSIUM 3.8 mEq/L (3.5-4.5); SODIUM 141 mEq/L (136-145); TOTAL PROTEIN 7.2 g/dl (6.2-8.1)
[2024-06-02 07:29] LABS: TROPONIN-I < 0.010 ng/mL (0.00-0.033)
[2024-06-02] MEDS ORDERED: MOTRIN 800800 MG/TAB PO (09:21)
[2024-06-02 09:50] VITALS: BP 113/62; PULSE 56
== END 2024-06-02 09:50 | disposition home or self-care (01) ==
LOC: COL.ER 06:25
PROVIDERS: Emergency Medicine
DX: R07.2 Precordial pain (principal)
CPT/HCPCS: J1885